=== PATIENT | male | born 1965 | race African-American/Black ===

== ENCOUNTER 2023-12-31 04:03 | Emergency (ER) | payer MEDICAID, OTHER ==
[~2023-12-31] VITALS: Ht 167.6 cm; Wt 81.0 kg
[~2023-12-31 04:03] MED LIST: MEDS
[2023-12-31 04:26] VITALS: TEMP 99.1; O2SAT 98
[2023-12-31 05:36] LABS: BASOPHILS % 0.3 % (0.0-2.0); EOSINOPHILS % 5.1 % (0.0-5.0); HEMATOCRIT. 40.2 % (42.0-52.0); HEMOGLOBIN. 13.8 g/dL (14.0-18.0); MEAN CORPUSCULAR HEMOGLOBIN 31.5 pg (28.0-32.0); MEAN CORPUSCULAR HGB CONC 34.4 g/dL (31.0-37.0); MEAN CORPUSCULAR VOLUME 91.7 fL (80.0-94.0); MEAN PLATELET VOLUME 7.3 fl (7.4-10.4); MONOCYTES % 9.8 % (2.0-8.0); NEUTROPHILS % 71.8 % (40.0-76.0); PLATELET 306 x1000/uL (130-400); RED BLOOD CELL COUNT 4.39 mill/uL (4.7-6.1); RED CELL DISTRIBUTION WIDTH 13.8 % (11.6-14.6); WHITE BLOOD COUNT 7.2 x1000/uL (4.5-11.0)
[2023-12-31 05:42] LABS: CHLORIDE 105 mEq/L (98-107); SODIUM 140 mEq/L (136-145)
[2023-12-31 05:44] LABS: CARBON DIOXIDE 30 mEq/L (21-32)
[2023-12-31 05:48] LABS: PROTHROMBIN TIME 11.2 sec (9.6-11.0)
[2023-12-31 05:49] LABS: CREATININE 0.9 mg/dL (0.6-1.3); GLUCOSE 104 mg/dL (70-105); UREA NITROGEN BLOOD 10 mg/dL (9-23)
[2023-12-31 05:51] LABS: ALANINE AMINOTRANSFERASE 23 IU/L (10-49); ALBUMIN 4.7 g/dL (3.2-4.8); ASPARTATE AMINOTRANSFERASE 27 IU/L (<34); BILIRUBIN DIRECT 0.3 mg/dL (<=3.0)
[2023-12-31 05:52] LABS: BILIRUBIN TOTAL 0.7 mg/dL (0.1-1.0); PROTEIN TOTAL 7.6 g/dL (6.0-8.3)
[2023-12-31 06:01] LABS: ETHANOL BLOOD < 10 mg/dL (<10)
[2023-12-31] MEDS ORDERED: NAPR500T7 MT (09:20)
[2023-12-31 09:36] LABS: CLARITY URINE CLEAR (CLEAR); COLOR URINE YELLOW (YELLOW); GLUCOSE URINE NEGATIVE (NEGATIVE); KETONES URINE NEGATIVE (NEGATIVE); LEUKOCYTE ESTERASE URINE NEGATIVE (NEGATIVE); NITRITE URINE NEGATIVE (NEGATIVE); OCCULT BLOOD URINE NEGATIVE (NEGATIVE); PROTEIN URINE NEGATIVE (NEGATIVE); SPECIFIC GRAVITY URINE 1.017 (1.005-1.030)
[2023-12-31] MEDS: IBUPROFEN 800MG TABLET PO ONE (09:45)
[2023-12-31 10:16] VITALS: BP 161/116; PULSE 87; RESP 16
[2023-12-31] MEDS: HYDROCODONE/ACETAMINOPHEN 5/325MG TABLET PO ONE (10:16)
[2023-12-31 10:46] LABS: *AMPHETAMINES SCREEN URINE PRESUMPTIVE POSITIVE (NEGATIVE); *BENZODIAZEPINES SCREEN URINE NEGATIVE (NEGATIVE)
[2023-12-31 10:47] LABS: *BARBITURATES SCREEN URINE NEGATIVE (NEGATIVE); *COCAINE SCREEN URINE PRESUMPTIVE POSITIVE (NEGATIVE); CANNABINOID URINE SCREEN PRESUMPTIVE POSITIVE (NEGATIVE); ECSTASY MDMA SCREEN URINE NEGATIVE (NEGATIVE); METHADONE URINE SCREEN NEGATIVE (NEGATIVE); OPIATES URINE SCREEN NEGATIVE (NEGATIVE); PHENCYCLIDINE URINE SCREEN PRESUMTIVE POSITIVE (NEGATIVE)
== END 2023-12-31 10:17 | disposition home or self-care (01) ==
LOC: ER 04:03
DX: M54.50 Low back pain, unspecified (principal); J44.9 Chronic obstructive pulmonary disease, unspecified; E11.9 Type 2 diabetes mellitus without complications; I10 Essential (primary) hypertension
CPT/HCPCS: 36415; 80048; 80076; 80305; 80320; 81003; 85025; 99283; G0480

== ENCOUNTER 2024-07-07 00:31 | Emergency (ER) | payer MEDICAID ==
[~2024-07-07] VITALS: Ht 177.8 cm; Wt 74.0 kg
[~2024-07-07 00:31] MED LIST changes: +NAPR-1486 MT
[2024-07-07 00:34] VITALS: BP 127/80; PULSE 97; RESP 16; O2SAT 96
[2024-07-07 02:09] LABS: HEMATOCRIT. 39.7 % (42.0-52.0); HEMOGLOBIN. 13.5 g/dL (14.0-18.0); MEAN CORPUSCULAR HEMOGLOBIN 31.7 pg (28.0-32.0); MEAN CORPUSCULAR HGB CONC 33.9 g/dL (31.0-37.0); MEAN CORPUSCULAR VOLUME 93.5 fL (80.0-94.0); MEAN PLATELET VOLUME 7.3 fl (7.4-10.4); PLATELET 284 x1000/uL (130-400); RED BLOOD CELL COUNT 4.25 mill/uL (4.7-6.1); RED CELL DISTRIBUTION WIDTH 13.4 % (11.6-14.6); WHITE BLOOD COUNT 3.5 x1000/uL (4.5-11.0)
[2024-07-07 02:13] LABS: CHLORIDE 104 mEq/L (98-107); POTASSIUM 4.2 mEq/L (3.5-5.1); SODIUM 140 mEq/L (136-145)
[2024-07-07 02:14] LABS: CALCIUM 9.7 mg/dL (8.7-10.4); CARBON DIOXIDE 33 mEq/L (21-32)
[2024-07-07 02:19] LABS: GLUCOSE 87 mg/dL (70-105); UREA NITROGEN BLOOD 16 mg/dL (9-23)
[2024-07-07 02:20] LABS: TROPONIN I HIGH SENSITIVITY 17 ng/L (3.0-53)
[2024-07-07 02:21] LABS: DIFFERENTIAL COMMENT 1
[2024-07-07 02:23] LABS: PROTHROMBIN TIME 10.9 sec (9.6-11.0)
[2024-07-07 02:50] LABS: ETHANOL BLOOD < 10 mg/dL (<10)
[2024-07-07 04:00] VITALS: TEMP 98.2
[2024-07-07] MEDS: ACETAMINOPHEN 325MG TABLET PO NR (04:00)
[2024-07-07 07:54] LABS: ATYPICAL LYMPHOCYTES 1; PLATELET ESTIMATE NORMAL
== END 2024-07-07 04:03 | disposition left against medical advice (07) ==
LOC: ER 00:31 → EDBEDREQ 02:49 → ER 04:03
DX: R07.89 Other chest pain (principal); M25.562 Pain in left knee; M25.561 Pain in right knee; J44.9 Chronic obstructive pulmonary disease, unspecified; E11.9 Type 2 diabetes mellitus without complications; E78.00 Pure hypercholesterolemia, unspecified; I10 Essential (primary) hypertension; F17.210 Nicotine dependence, cigarettes, uncomplicated
CPT/HCPCS: 36415; 71045; 73562; 80048; 80320; 83880; 84484; 85025; 93005; 99285; G0480